=== PATIENT | male | born 1950 | race Caucasian/White ===

== ENCOUNTER → 2018-07-04 07:19 | Day surgery (SDC) | payer MEDICARE, BC ==
--- NOTE | 2018-07-01 13:30 | HP ---
AMENDED REPORT NOW INCLUDES DESIGNATED COSIGNER CC: Job Cook MD * PREOPERATIVE HISTORY AND PHYSICAL: DATE OF ADMISSION/SURGERY: 07/04/18 This patient is scheduled for same-day surgery admission by Dr. Cook on Saturday , 07/04/18. ATTENDING SURGEON: Janet Cook MD * (dictated by Geetha Pillai NP). CHIEF COMPLAINT: Right thyroid nodule. HISTORY OF PRESENT ILLNESS: The patient is a 67-year-old male who noticed swelling in the right supraclavicular area in January 2018. He saw his primary care provider Dr. Cook who ordered an ultrasound and in the course of the ultrasound, a thyroid nodule was found. He then underwent a thyroid specific ultrasound and a nodule was identified in the right lobe of the thyroid and he was referred to the thyroid nodule clinic. He was seen in the clinic by Dr. 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 He was then referred to Dr. Cook for consideration of thyroid surgery. He reports thyroid function tests were normal and he denied any symptoms related to the thyroid nodule. The patient put off surgery to pursue a second opinion; he returned to see Dr. Cook on 06/25/18 and stated that the second opinion also recommended surgery and that based on thyroid genetic testing, the nodules have a 95% likelihood of being cancerous. The patient is now ready to have right hemithyroidectomy as recommended by Dr. Cook. Dr. Cook discussed the nature of the surgical procedure, the relevant risks and benefits, and today I reviewed the expected postoperative care and recovery. The patient has had a chance to ask questions and stated that he understands the information and is satisfied with the answers given to his questions. He will sign surgical consent on the day of surgery. PAST MEDICAL HISTORY: Significant for hypertension; sleep apnea requiring the use of CPAP; hyperlipidemia; obesity; and GERD. PAST SURGICAL HISTORY: TURP for benign prostatic hypertrophy [place] [address] Londono; laparoscopic cholecystectomy in 2003 in [place]. MEDICATIONS: 1. QVAR RediHaler 80 mcg per actuation 1 puff b.i.d. 2. Losartan/hydrochlorothiazide 100/25 mg 1 tablet daily in the morning. 3. Ezetimibe 10 mg p.o. daily at 5 p.m. 4. Omeprazole 40 mg p.o. daily in the morning. 5. Aspirin 81 mg p.o. daily and he took his last dose preoperatively on . 6. He also takes vitamin C 500 mg. ALLERGIES: No known drug allergies. FAMILY HISTORY: No known history of endocrinopathy; no anesthesia complications , bleeding tendencies or clotting disorders. SOCIAL HISTORY: He is and his will accompany him on the day of surgery; he is a nonsmoker and rarely drinks alcohol and denies the use of other substances. REVIEW OF SYSTEMS: Constitutional: No fevers, chills, excessive fatigue, or weight loss. Endocrine: No diabetes. Thyroid disease as described in history of present illness. No night sweats. Hematologic: No easy bruising or bleeding. No previous blood transfusions. Respiratory: History of sleep apnea and he uses CPAP every night; no chronic cough or hemoptysis. Mild shortness of breath with hill climbing. Cardiovascular: No anginal chest pain or palpitations. Gastrointestinal: No nausea, vomiting, diarrhea, GI bleeding, or constipation; he is treated for acid reflux with omeprazole with good results. Genitourinary: No dysuria. Musculoskeletal: No complaints of back or joint pain. Integumentary: No chronic rashes or skin changes. Neurologic: No headache or blurred vision. No areas of focal weakness. General: No previous anesthesia complications. No history of deep vein thrombosis or pulmonary embolism. PHYSICAL EXAMINATION GENERAL SURVEY: The patient is a 67-year-old male, obese, well developed, in no acute distress. VITAL SIGNS: Height 72 inches, weight 240 pounds, body mass index 32.5. Blood pressure 150/72, pulse 100, respiratory rate 18, temperature 97.3 tympanic. HEENT: Benign. NECK: Supple. No cervical lymphadenopathy. No thyromegaly. No nodularity to palpation of the thyroid. No carotid bruits. There is soft right supraclavicular fullness. LUNGS: Breath sounds bilaterally clear and equal. HEART: Regular rate and rhythm. No murmurs or rubs appreciated. ABDOMEN: Obese. Active bowel sounds. Soft, nondistended, nontender throughout. No obvious masses, organomegaly, or evidence of ventral hernia. There is mild diastasis recti with the patient doing a small sit up. EXTREMITIES: Warm without edema or skin ulceration. GENITALIA: Deferred. RECTAL: Deferred. NEUROLOGIC: Alert and oriented x3. Steady gait. SKIN: Warm, dry, intact. IMPRESSION: Right thyroid nodule. PLAN: Same-day surgery admission to Dr. Cook's service on 07/04/18 for right hemithyroidectomy. SPIKE PILLAI, ASTRONAUT [place] SPECIALIST [id number]/[facility] #: [id number] VINICIUS
[~2018-07-04 07:19] MED LIST: Acetaminophen IV 1GM/100ML * 100 ML ONE; Buffered Lidocaine 0.9% SYRIN* 5 ML/SYR SYRINGE INTRADERM ONE; Bupivacaine 0.25% W/EPI* 10 ML SDV ONE; Dexamethasone IV* 4 MG/ML 1 ML (4 MG) ONE; HYDROcodone/ACET. 7.5/325 LIQ* 15 ML UDC PO PRN; Heparin VIAL(*) 5000 UNITS/ML VIAL (FIVE THOUSAND) ONE; Lidocaine 2% PF * 5 ML VIAL ONE; Midazolam* 1 MG/ML 2 ML VIAL (2 MG) ONE; Naloxone* 0.4 MG/ML 1 ML VIAL IV PRN; Ondansetron INJ* 2 MG/ML VIAL ONE; Phenylephrine INJ* 10 MG/ML 1 ML VIAL (10 MG) ONE; Propofol* 10 MG/ML 20 ML BTL IV PUSH ONE; Rocuronium* 10 MG/ML VIAL ONE; Succinylcholine* 20 MG/ML 10 ML VIAL ONE; ceFAZolin 2 GM PREMIX in ORs 2 GM/50 ML BAG IVPB ONE; fentaNYL* 50 MCG/ML 2 ML VIAL (100 MCG VIAL) IV PRN; fentaNYL* 50 MCG/ML 2 ML VIAL (100 MCG VIAL) ONE; oxyCODONE TAB* 5 MG TAB PO PRN
--- NOTE | 2018-07-04 10:52 | BRIEFOPN ---
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 tolerated procedure well and was transferred to in a stable condition. [facility]
[2018-07-04 13:36] VITALS: BP 147/86
--- NOTE | 2018-07-05 05:49 | OP ---
CC: [facility]; Ashwin Abreu MD; Job Cook MD OPERATIVE REPORT: DATE OF OPERATION: 07/04/18 DATE OF : 54 SURGEON: Janet Cook MD BEHAVIORAL PEDIATRICIAN: Dr. Ba. ANESTHESIA: General. 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 OPERATIVE PROCEDURE: Right hemithyroidectomy. INDICATIONS: Mr. Brand is a 67-year-old male recently diagnosed with a follicular neoplasm of th e thyroid gland. He originally opted for a second opinion which confirmed the recommendation for thy roidectomy. Due to the high likelihood of malignancy, he has opted for hemithyroidectomy to start. DESCRIPTION OF PROCEDURE: He was brought to the operating room, placed on the OR table in the supine position and given given general anesthesia. The neck was prepped and draped in the usual sterile f ashion. After infiltrating with local anesthetic, an incision was made along the line that had been marked preoperatively. Subcutaneous tissue was then divided with electrocautery through the platysma muscle. Flaps were developed superiorly to the thyroid notch and inferiorly to the sternal notch an d then the strap muscles were divided along the midline. Once this was done, the strap muscles were retracted laterally over the right lobe of the thyroid gland and dissection was begun in the medial p ortion of the gland. There was a small pyramidal lobe which was dissected free first and then indivi dual vessels approaching the medial aspect of the superior pole were taken down between ligature and clips. Once the superior pole appeared to be completely down, attention was turned to the inferior p ole and here a LigaSure was used to divide the vessels and approach the gland. Once the inferior krystin e was freed up, attention was turned to the middle portion of the gland. Here a search was made with blunt dissection for the recurrent laryngeal nerve which was identified in the expected location. T hen small vessels that approached the gland were taken down with LigaSure until the gland could be el evated off the trachea and electrocautery was used to divide the gland from the trachea. It was clam ped at the distal portion of the isthmus and amputated and handed off as a specimen. A suture ligatur e was used to ligate the isthmus stump. The bed was inspected for hemostasis and a search was made f or the parathyroid glands. One parathyroid was definitively identified and noted to be intact and sec ond likely candidate for a parathyroid gland was also identified. Once it appeared that hemostasis w as adequate, closure was accomplished. This was done by reapproximating the strap muscles with 3-0 V icryl interrupted stitches and then the platysma muscle was reapproximated with interrupted 4-0 Vicry l stitches and skin was closed with 4-0 Prolene in a subcuticular fashion. Steri-Strips and a dry fl uffy dressing were applied. All sponge and instrument counts were correct. The patient tolerated th e procedure well and was transferred to Recovery in a stable condition. [id number]/[facility] #: [id number]
== END | disposition home or self-care (01) ==
LOC: OR 07:19
PROVIDERS: ATTEND Surgery
DX: C73 Malignant neoplasm of thyroid gland (principal); I10 Essential (primary) hypertension; G47.33 Obstructive sleep apnea (adult) (pediatric); E78.5 Hyperlipidemia, unspecified; K21.9 Gastro-esophageal reflux disease without esophagitis; Q60.0 Renal agenesis, unilateral
CPT/HCPCS: 88307; J0330; J0690; J1100; J1644; J2250; J2405; J2704; J3010

== ENCOUNTER 2018-11-26 09:17 | Day surgery (SDC) | payer MEDICARE, BC ==
[~2018-11-26 09:17] MED LIST changes: -Acetaminophen IV 1GM/100ML * 100 ML ONE; +Acetaminophen TAB* 325 MG PO ONE; -Buffered Lidocaine 0.9% SYRIN* 5 ML/SYR SYRINGE INTRADERM ONE; +Buffered Lidocaine 1% SYRIN* 1 ML/SYRINGE INTRADERM ONE; -Bupivacaine 0.25% W/EPI* 10 ML SDV ONE; -Dexamethasone IV* 4 MG/ML 1 ML (4 MG) ONE; +Gabapentin CAP(*) 300 MG PO ONE; -HYDROcodone/ACET. 7.5/325 LIQ* 15 ML UDC PO PRN; -Heparin VIAL(*) 5000 UNITS/ML VIAL (FIVE THOUSAND) ONE; +Lactated Ringers 1000 ML Bag* 1,000 ML IV SCH; -Lidocaine 2% PF * 5 ML VIAL ONE; -Midazolam* 1 MG/ML 2 ML VIAL (2 MG) ONE; -Naloxone* 0.4 MG/ML 1 ML VIAL IV PRN; -Ondansetron INJ* 2 MG/ML VIAL ONE; -Phenylephrine INJ* 10 MG/ML 1 ML VIAL (10 MG) ONE; -Propofol* 10 MG/ML 20 ML BTL IV PUSH ONE; -Rocuronium* 10 MG/ML VIAL ONE; -Succinylcholine* 20 MG/ML 10 ML VIAL ONE; -ceFAZolin 2 GM PREMIX in ORs 2 GM/50 ML BAG IVPB ONE; -fentaNYL* 50 MCG/ML 2 ML VIAL (100 MCG VIAL) IV PRN; -fentaNYL* 50 MCG/ML 2 ML VIAL (100 MCG VIAL) ONE; -oxyCODONE TAB* 5 MG TAB PO PRN
[2018-11-26] MEDS ORDERED: Gabapentin CAP(*) 300 MG ONE (09:34)
[2018-11-26] MEDS ORDERED: Buffered Lidocaine 1% SYRIN* 1 ML/SYRINGE INTRADERM ONE (09:35)
[2018-11-26] MEDS ORDERED: Acetaminophen TAB* 325 MG ONE (09:35)
[2018-11-26] MEDS ORDERED: fentaNYL* 50 MCG/ML 2 ML VIAL (100 MCG VIAL) ONE ×2 (10:43→12:03)
[2018-11-26] MEDS ORDERED: Midazolam* 1 MG/ML 2 ML VIAL (2 MG) ONE ×2 (10:43→11:34)
[2018-11-26] MEDS ORDERED: Lidocain 1% EPI 1:100,000 * 30 ML MDV ONE (11:03)
[2018-11-26] MEDS ORDERED: Famotidine IV* 10 MG/ML 2 ML (20 mg) ONE (11:21)
[2018-11-26] MEDS ORDERED: Propofol* 10 MG/ML 20 ML BTL ONE ×2 (11:31→13:00)
[2018-11-26] MEDS ORDERED: Cisatracurium* 2 MG/ML MDV 5 ML ONE (11:31)
[2018-11-26] MEDS ORDERED: Dexamethasone IV* 4 MG/ML 1 ML (4 MG) ONE (11:31)
[2018-11-26] MEDS ORDERED: Ondansetron INJ* 2 MG/ML VIAL ONE (11:31)
[2018-11-26] MEDS ORDERED: Succinylcholine* 20 MG/ML 10 ML VIAL ONE (11:31)
[2018-11-26] MEDS ORDERED: Lidocaine 2% PF * 5 ML VIAL ONE (11:34)
[2018-11-26] MEDS ORDERED: PROCHLORPERAZINE INJ 5 MG/ML 2 ML VIAL IV PRN (11:55)
[2018-11-26] MEDS ORDERED: diPHENhydraMINE IV* 50 MG/ML 1 ml VIAL (BENADRYL) IV PRN (11:55)
[2018-11-26] MEDS ORDERED: DiMENhydriNATE IV* 50 MG/ML VIAL IV PUSH PRN (11:55)
[2018-11-26] MEDS ORDERED: HYDROcodone/ACETAMIN 5-325 MG* 1 TAB PO PRN ×2 (11:55)
[2018-11-26] MEDS ORDERED: fentaNYL* 50 MCG/ML 2 ML VIAL (100 MCG VIAL) IV PRN (11:55)
[2018-11-26] MEDS ORDERED: Ondansetron INJ* 2 MG/ML VIAL IV PRN (11:55)
[2018-11-26] MEDS ORDERED: Naloxone* 0.4 MG/ML 1 ML VIAL IV PRN (11:55)
[2018-11-26] MEDS ORDERED: HYDROcodone/ACET. 7.5/325 LIQ* 15 ML UDC ONE ×2 (13:46→14:39)
[2018-11-26] MEDS ORDERED: Hydrochlorothiazide TAB* 25 MG PO ONE (15:00)
[2018-11-26] MEDS ORDERED: Losartan TAB* 25 MG PO ONE (15:00)
[2018-11-26 16:42] VITALS: BP 161/99
--- NOTE | 2018-11-26 21:50 | OP ---
OPERATIVE REPORT: DATE OF OPERATION: 11/26/18 - SDS DATE OF : 54 SURGEON: Franklyn Arredondo MD GEAR SHAPER SET UP OPERATOR: Chidi Araya MD ANESTHESIOLOGIST: Srini Fonseca MD ANESTHESIA: General. PRE-OP DIAGNOSIS: Malignant neoplasm thyroid. POST-OP DIAGNOSIS: Malignant neoplasm thyroid. OPERATIVE PROCEDURE: Left thyroid lobectomy. ESTIMATED BLOOD LOSS: Less than 10 cc. SPECIMEN: Left lobe of thyroid to Pathology. INDICATION: This is a 68-year-old male who underwent right thyroid lobectomy a few months ago. 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 Today, the patient presented for elective completion left thyroid lobectomy. DESCRIPTION OF PROCEDURE: He was brought to the operating room, general anesthesia was induced, and a NIM oral endotracheal tube was placed. Positioning was confirmed visually with a GlideScope and the monitor was found to be in good working order. The patient's neck was then marked. Approximately 4 cc of 1% lidocaine with 1:100,000 epinephrine were infiltrated into the subcutaneous soft tissue. The patient was prepped and draped in sterile fashion and a time-out was performed. The patient's old scar was excised with a #15 blade. Dissection was taken down to and through the level of the platysma. Superior and inferior flaps were then raised and the José Luis self-retaining retractor was placed into the field. The strap muscles were then identified and divided vertically along the median raphe and elevated off of the left lobe of the thyroid. Superior pole vascular pedicle was identified, ligated with hemoclips and divided with the LigaSure device. Attention was then turned inferiorly. The anterior wall of the trachea was identified as was the inferior edge of the isthmus remnant. The inferior pole region was then explored. Inferior pole vascular structures were identified. The tracheoesophageal groove was explored until the recurrent laryngeal nerve was identified. It was confirmed both visually and with the nerve stimulator. This was used as a landmark to guide further dissection. The inferior vascular pedicle was ligated as close as possible to the glands in an effort to maintain the blood supply of parathyroid gland, at least 1 candidate parathyroid was definitively encountered and preserved during this portion of the procedure. More superiorly, the middle thyroid vein was ligated and divided. The recurrent laryngeal nerve was traced to its insertion point in the region of Bowden's ligament. This enabled the thyroid to be reflected medially. The remnants of Bowden's ligament were then divided with the bipolar forceps and the thyroid lobe was delivered. The thyroid bed was examined. A Valsalva was performed. A few small bleeders were controlled with bipolar forceps. The wound was copiously irrigated with saline. A piece of Surgicel was placed against the small remnant of thyroid tissue at Bowden's ligament. The strap muscles were reapproximated with 4-0 Vicryl. The platysma was also reapproximated with 4-0 Vicryl and the skin was closed with 5-0 Prolene. Mastisol and Steri-Strips were applied. The patient was then extubated and delivered to the PACU in stable condition. [id number]/[facility] #: [id number] VINICIUS
== END 2018-11-26 16:45 | disposition home or self-care (01) ==
LOC: OR 09:17
PROVIDERS: ATTEND Otolaryngology
DX: C73 Malignant neoplasm of thyroid gland (principal); I10 Essential (primary) hypertension; E78.00 Pure hypercholesterolemia, unspecified; G47.33 Obstructive sleep apnea (adult) (pediatric); K21.9 Gastro-esophageal reflux disease without esophagitis; Q60.0 Renal agenesis, unilateral
CPT/HCPCS: 88307; A9270-GY; J0330; J1100; J2250; J2405; J2704; J3010